=== PATIENT | male | born 1995 | race Caucasian/White ===

== ENCOUNTER 2023-10-13 14:15 | Outpatient (CLI) | payer OTHER ==
--- NOTE | 2023-10-13 21:24 | XRAY Report ---
PROCEDURE: Chest 2V INDICATIONS: PNEUMONIA TECHNIQUE: 2 views of the chest were acquired. COMPARISON: None. FINDINGS: Surgical changes and devices: None. Lungs and pleura: No pleural effusions or pneumothorax. Lungs are clear. Mediastinum: Mediastinal contours appear normal. Heart size is normal. Bones and chest wall: No suspicious bony lesions. Overlying soft tissues appear unremarkable. IMPRESSION: No acute cardiopulmonary process. Reviewed by: Anabela Munoz MD on 10/13/2023 9:23 PM PDT Approved by: Anabela Munoz MD on 10/13/2023 9:23 PM PDT Station ID: [id number]
== END 2023-10-13 14:30 | disposition home or self-care (01) ==
LOC: DI.N 14:15
PROVIDERS: ATTEND Family Medicine
DX: J18.9 Pneumonia, unspecified organism (principal)

== ENCOUNTER 2023-10-17 13:30 | Outpatient (CLI) | payer OTHER ==
--- NOTE | 2023-10-17 19:34 | XRAY Report ---
PROCEDURE: Chest 2V INDICATIONS: COUGH TECHNIQUE: 2 views of the chest were acquired. COMPARISON: 10/13/2023. FINDINGS: Surgical changes and devices: None. Lungs and pleura: No pleural effusions or pneumothorax. Interval development of linear atelectasis i n the lingula of the upper lobe of the left lung. Also, a focal small pneumonia has developed in the retrocardiac region of the left lower lobe. Mediastinum: Mediastinal contours appear normal. Heart size is normal. Bones and chest wall: No suspicious bony lesions. Overlying soft tissues appear unremarkable. IMPRESSION: Focal small pneumonia, left lower lobe. Linear atelectasis, lingula of left upper lobe. Progress films are recommended until clear. Reviewed by: Dean Anand MD on 10/17/2023 7:33 PM PDT Approved by: Dean Anand MD on 10/17/2023 7:33 PM PDT Station ID: [id number]
== END 2023-10-17 13:45 | disposition home or self-care (01) ==
LOC: DI.N 13:30
PROVIDERS: ATTEND Family Medicine
DX: J18.9 Pneumonia, unspecified organism (principal); J98.11 Atelectasis